=== PATIENT | male | born 1955 | race African-American/Black ===

== ENCOUNTER 2018-04-05 17:47 | Emergency (ER) | payer OTHER, SELFPAY | END 2018-04-05 19:10 | disposition home or self-care (01) | LOC: ERS 17:47 | DX: M79.674 Pain in right toe(s) (principal); Z71.6 Tobacco abuse counseling; F17.210 Nicotine dependence, cigarettes, uncomplicated; I10 Essential (primary) hypertension | CPT/HCPCS: 99406 ==

== ENCOUNTER 2018-12-20 16:43 | Emergency (ER) | payer OTHER, SELFPAY ==
--- NOTE | 2018-12-20 17:44 | CT ---
CT BRAIN 12/20/18 HISTORY: Trauma. Noncontrast enhanced CT images of the brain is obtained from the base of the skull through the vertex . Brain and bone windows obtained. Noncontrast enhanced CT images of the brain demonstrates diffuse cortical atrophy. A left frontal sca lp hematoma is seen. No significant evidence of acute intracranial masses, hemorrhages or strokes see n. IMPRESSION: Unremarkable CT brain. There is a small left frontal scalp hematoma seen. POS: [facility]
[2018-12-20] MEDS ORDERED: Adacel (T-DAP) 0.5 ML SYRINGE ONE (18:25)
--- NOTE | 2018-12-24 00:05 | EKG ---
Test Reason : FALL Blood Pressure : / mmHG Vent. Rate : 070 BPM Atrial Rate : 070 BPM P-R Int : 118 ms QRS Dur : 080 ms QT Int : 416 ms P-R-T Axes : 068 006 053 degrees QTc Int : 449 ms Normal sinus rhythm with sinus arrhythmia Junctional ST depression, probably normal Borderline ECG Confirmed by JAME CHAMBERLAIN, AGUSTÍN ([id number]), editor in chief newspaper AYDIN DAMIAN ([id number]) on 12/24/2018 12:04:19 AM Referred By: Confirmed By:AGUSTÍN KILGORE MD
== END 2018-12-20 18:49 | disposition home or self-care (01) ==
LOC: ERS 16:43
DX: S00.31XA Abrasion of nose, initial encounter (principal); S00.81XA Abrasion of other part of head, initial encounter; I10 Essential (primary) hypertension; F17.210 Nicotine dependence, cigarettes, uncomplicated; Z79.899 Other long term (current) drug therapy; W19.XXXA Unspecified fall, initial encounter
CPT/HCPCS: 70450; 90471; 90715; 93005

== ENCOUNTER 2021-11-03 08:20 | Emergency (ER) | payer OTHER ==
[2021-11-03] MEDS ORDERED: Calcium Chloride 1 GM/10 ML Abboject SYRINGE ONE (13:00)
[2021-11-03] MEDS ORDERED: EPINEPHrine 1 MG/10 ML Abboject SYRINGE ONE (13:00)
== END 2021-11-03 08:30 | disposition expired ==
LOC: ERS 08:20
DX: I46.8 Cardiac arrest due to other underlying condition (principal); I10 Essential (primary) hypertension; F17.210 Nicotine dependence, cigarettes, uncomplicated
CPT/HCPCS: 31500; 92950; 96374; 96375; J0171